=== PATIENT | female | born 1990 | race African-American/Black ===

== ENCOUNTER 2016-08-28 12:00 | Emergency (ER) | payer MEDICAID ==
[~2016-08-28] VITALS: Ht 157.5 cm; Wt 72.6 kg
[~2016-08-28 12:00] MED LIST: CYCLOBENZAPRINE10 MG ORAL; NAPROXEN500 M1 ORAL; NKM
[2016-08-28 12:30] VITALS: BP 111/66
[2016-08-28] MEDS ORDERED: TdaP Vaccine 0.5ml Syr IM ONE (12:45)
[2016-08-28] MEDS ORDERED: Bacitracin Oint UD TOPIC ONE (12:45)
[2016-08-28] MEDS ORDERED: CEPHALEXIN500 MG ORAL (12:59)
[2016-08-28] MEDS ORDERED: IBUPROFEN600 MG ORAL (12:59)
--- NOTE | 2016-08-28 12:59 | Emergency Room Report ---
History of Present Illness General Chief Complaint: Laceration Source: Patient Present Illness HPI 26 YO Female Pt. presents to the ED c/o laceration to the left middle and index finger x 1 week. pt not UTD with tetanus. denies bleeding at this time. Patient reports discharge x2 days. Patient states she has been applying Neosporin reports mild erythema. 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 Patient states it the laceration occurred when she asked only punctured the skin between her 2 fingers using a clean sharp and knife. Denies numbness tingling or loss of sensation or gross motor movements of the extremities, incontinence of bowel or bladder. Denies CP, Palpitations, LOC, AMS , dizziness, Changes in Vision, Sensation, paresthesias, or a sudden severe headache. Allergies: Coded Allergies: No Known Allergies (Unverified , 05/11/16) Patient History Past Medical History: see triage record Past Surgical History: none Pertinent Family History: none Now: No Reviewed Nursing Documentation: PMH: Agreed, PSxH: Agreed Nursing Documentation-PMH Past Medical History: No Stated History Review of Systems All Other Systems: negative except mentioned in HPI Physical Exam Vital Signs Date Time Temp Pulse Resp B/P Pulse Ox O2 Delivery O2 Flow Rate FiO2 08/28/16 12:08 98.2 83 20 111/66 100 Room Air Sp02 EP Interpretation: reviewed, normal General Appearance: no apparent distress, alert, GCS 15, non-toxic Head: normocephalic, atraumatic Eyes: bilateral eye PERRL, bilateral eye normal inspection ENT: hearing grossly normal, normal pharynx, no angioedema, normal voice Neck: full range of motion, supple/symm/no masses Respiratory: chest non-tender, lungs clear, normal breath sounds, speaking full sentences Cardiovascular #1: regular rate, rhythm, no edema Musculoskeletal: back normal, gait/station normal, normal range of motion, non- tender, no calf tenderness, other - no bony ttp. Neurologic: alert, oriented x3, responsive, motor strength/tone normal, sensory intact, speech normal Psychiatric: judgement/insight normal, memory normal, mood/affect normal, no suicidal/homicidal ideation Skin: normal color, no rash, warm/dry, well hydrated, other - small 0.5cm puncture wound noted in the web of the left index and middle finger, mild erythema, no significant d/c observed. Lymphatic: no adenopathy Medical Decision Making PA Attestation Dr. Bianchi is my supervising Physician whom patient management has been discussed with. Diagnostic Impression: Primary Impression: Laceration of hand with delay in treatment Qualified Codes: S61.412A - Laceration without foreign body of left hand, initial encounter ER Course 26 YO Female Pt. presents to the ED c/o laceration to the left middle and index finger x 1 week. pt not UTD with tetanus. denies bleeding at this time. Patient reports discharge x2 days. Ddx considered but are not limited to laceration, tendon injury, cellulitis, amputation Vital signs: are WNL, pt. is afebrile H&PE are most consistent with: small 0.5cm puncture wound noted in the web of the left index and middle finger, mild erythema, no significant d/c observed. ORDERS: none required at this time, the diagnosis is clinical ED INTERVENTIONS: -Tetanus vaccine was administered as pt. vaccination status was unknown. - The wound was copiously irrigated with normal saline, and explored for foreign body for which no FB was found. -bacitracin applied and dressing. -melina taping DISCHARGE: At this time pt. is stable for d/c to home. Will provide printed patient care instructions, and any necessary prescriptions. Care plan and follow up instructions have been discussed with the patient prior to discharge. Last Vital Signs Date Time Temp Pulse Resp B/P Pulse Ox O2 Delivery O2 Flow Rate FiO2 08/28/16 12:30 98.2 83 20 111/66 100 Room Air Disposition: HOME, SELF-CARE Condition: Stable Scripts Ibuprofen* (MOTRIN*) 600 Mg Tablet 600 MG ORAL THREE TIMES A DAY, #30 TAB 0 Refills Prov: Scarlett Cox P.A. 08/28/16 Cephalexin* (KEFLEX*) 500 Mg Capsule 500 MG ORAL EVERY 12 HOURS, #14 CAP 0 Refills Prov: Scarlett Cox P.A. 08/28/16 Referrals: NOT CHOSEN IPA/MD,REFERRING (PCP) Patient Instructions: Nonsutured Laceration Care Additional Instructions: Take medications as directed. Follow up with PCP in 3-5 days Return sooner to ED if new symptoms occur, or current symptoms become worse. - Please note that this Emergency Department Report was dictated using [employer] manager technology software, occasionally this can lead to erroneous entry secondary to interpretation by the dictation equipment. Scarlett Cox Aug 28, 2016 12:58
[2016-08-28 13:15] VITALS: BP 111/66
== END 2016-08-28 13:15 | disposition home or self-care (01) ==
LOC: EMR 12:51
DX: S61.211A Laceration without foreign body of left index finger without damage to nail, initial encounter (principal); S61.213A Laceration without foreign body of left middle finger without damage to nail, initial encounter; W26.0XXA Contact with knife, initial encounter; Y92.9 Unspecified place or not applicable; Z23 Encounter for immunization
CPT/HCPCS: 90471; 90715; 99284

== ENCOUNTER 2018-07-20 06:22 | Emergency (ER) | payer SELFPAY ==
[~2018-07-20] VITALS: Ht 157.5 cm; Wt 77.1 kg
[~2018-07-20 06:22] MED LIST changes: +CEPHALEXIN500 MG ORAL; +IBUPROFEN600 MG ORAL
[2018-07-20 06:45] VITALS: BP 126/86
--- NOTE | 2018-07-20 07:00 | NUR ---
ER Nurse Note: Pt came from home c/o right ankle pain 04/22 pain, occured 07/17/18. Pt stated her right ankle got stuck in a hole, had a jerky movement, and injured her ankle. Pain started Sunday 04/22; unable to walk. On assessment; ankle was clean, dry, intact. Able to move toes with discomfort. Cap refill <3 secs with blanching. TYREL saw pt, x-ray completed, awaiting results, gave report to BONITA De La Torre.
--- NOTE | 2018-07-20 07:28 | NUR ---
ED Nurse Note: Received pt from BONITA Eaton. Pt came from home c/o right ankle pain 10/10 pain. Pt is in gurney. Xrays are done. Will continue to monitor.
[2018-07-20] MEDS ORDERED: ACETAMINOPHEN-1 EAC1 ORAL (08:04)
[2018-07-20] MEDS ORDERED: IBUPROFEN600 MG ORAL (08:04)
[2018-07-20 08:09] VITALS: BP 126/86
--- NOTE | 2018-07-20 08:09 | NUR ---
ED Nurse Note: Patient is being discharged from medical care. Awake, alert and oriented x4. After care instructions, including prescriptions. Patient verbalized understanding of After care instructions. Patient signed patient consent in the medical record for patient destination upon discharge. All medical devices such as IV and ID band were removed. TYLER wrap applied by LAURIE Rachel. Patient was educated on how to use crutches and patient was able to perform well. Patient ambulated out with all personal belongings.
--- NOTE | 2018-07-20 08:50 | Emergency Room Report ---
History of Present Illness General Chief Complaint: Multiple Trauma/Fall Source: Patient Present Illness HPI 28-year-old female presents ED for evaluation. Complaining of right pain. Started 3 days ago when her foot went through a piece of wood while she was walking. States her shoe came off in the process. States there is no pain initially but states that when she woke up this morning she felt intense pain and was unable to bear weight. Pain is throbbing, 10 out of 10, nonradiating. Denies any other injuries. No other aggravating relieving factors. Denies any other associated symptoms Allergies: Coded Allergies: No Known Allergies (Unverified , 05/11/16) Patient History Past Medical History: none Past Surgical History: none Pertinent Family History: none Social History: Denies: smoking, alcohol use, drug use Last Menstrual Period: 07/13/18 Now: No Immunizations: UTD Reviewed Nursing Documentation: PMH: Agreed; PSxH: Agreed Nursing Documentation-PMH Past Medical History: No History, Except For Hx Cardiac Problems: No - fracture right ankle and knee 2018 Review of Systems All Other Systems: negative except mentioned in HPI Physical Exam Vital Signs Date Time Temp Pulse Resp B/P (MAP) Pulse Ox O2 Delivery O2 Flow Rate FiO2 07/20/18 06:37 98.6 83 18 126/86 98 07/20/18 06:45 Room Air Sp02 EP Interpretation: reviewed, normal General Appearance: no apparent distress, alert, GCS 15, non-toxic Head: normocephalic Eyes: bilateral eye normal inspection, bilateral eye PERRL ENT: normal ENT inspection, hearing grossly normal Neck: normal inspection Respiratory: normal inspection Cardiovascular #1: normal inspection Gastrointestinal: normal inspection Rectal: deferred Genitourinary: no CVA tenderness Musculoskeletal: tender - R foot Neurologic: alert, oriented x3, responsive, motor strength/tone normal, sensory intact, speech normal Psychiatric: normal inspection Skin: normal inspection Lymphatic: normal inspection Procedures Splinting Splinting : Consent: Verbal Pre-Made Type: TYLER wrap Pre-Proc Neuro Vasc Exam: normal Post-Proc Neuro Vasc Exam: normal Patient Tolerated: Well Complications: None Medical Decision Making Diagnostic Impression: Primary Impression: Foot injury Qualified Codes: S99.921A - Unspecified injury of right foot, initial encounter ER Course Hospital Course 28 yo F presents to ED c/o R foot pain Differential diagnoses include: Fracture, dislocation, sprain, contusion Clinical course Patient placed on stretcher. After initial history and physical, I ordered xays of R foot/ankle patient declined pain meds here Xrays prelim read shows no acute fracture/dislocation. Discussed findings with patient. Placed in tyler wrap, given crutches Safe for discharge or close outpatient follow-up. We'll provide referrals Diagnosis - foot injury Stable and discharged to home with prescription for Motrin, Tylenol #3. apply ice, keep elevated. weight bear as tolerated. Followup with PMD. Return to ED if symptoms recur or worsen Other X-Ray Diagnostic Results Other X-Ray Diagnostic Results #1: X-Ray ordered: R foot # of Views/Limited Vs Complete: 3 View Indication: Pain EP Interpretation: Yes Interpretation: no dislocation, no soft tissue swelling, no fractures Impression: No acute disease Electronically Signed by: Electronically signed by Vladimir Patel MD Other X-Ray Diagnostic Results #2: X-Ray ordered: R ankle # of Views/Limited Vs Complete: 3 View Indication: Pain EP Interpretation: Yes Interpretation: no dislocation, no soft tissue swelling, no fractures Impression: No acute disease Electronically Signed by: Electronically signed by Vladimir Patel MD Last Vital Signs Date Time Temp Pulse Resp B/P (MAP) Pulse Ox O2 Delivery O2 Flow Rate FiO2 07/20/18 08:09 98.6 83 18 126/86 98 Room Air Status: improved Disposition: HOME, SELF-CARE Condition: Stable Scripts Acetaminophen With Codeine (T#3) (TYLENOL #3 TAB*) Y Tab 1 TAB ORAL Q8H PRN for For Pain for 3 Days, TAB Prov: Vladimir Patel MD 07/20/18 Ibuprofen* (MOTRIN*) 600 Mg Tablet 600 MG ORAL Q8H PRN for For Pain, #30 TAB 0 Refills Prov: Vladimir Patel MD 07/20/18 Referrals: NON PHYSICIAN (PCP) [facility] Ravinder Rivera [facility]. [facility] Patient Instructions: Foot Contusion, [id number] Vladimir Patel MD Jul 20, 2018 08:50
--- NOTE | 2018-07-20 09:48 | Diagnostic Imaging Report ---
Indication: Right foot pain after twisting ankle 3 days ago Technique: 3 views right foot Comparison: none Findings: No acute fractures. No dislocations. The joint spaces are preserved. There is minimal hallux valgus. Impression: Negative
--- NOTE | 2018-07-20 09:49 | Diagnostic Imaging Report ---
Indication: Pain in right ankle after twisting it 3 days ago Technique: 3 views of the right ankle Comparison: none Findings: No acute fractures. No dislocations. The joint spaces are preserved Impression: Negative
== END 2018-07-20 08:00 | disposition home or self-care (01) ==
LOC: EMR 07:33
DX: S99.921A Unspecified injury of right foot, initial encounter (principal); X58.XXXA Exposure to other specified factors, initial encounter; Y92.9 Unspecified place or not applicable
CPT/HCPCS: 99284